=== PATIENT | male | born 1995 | race Caucasian/White ===

== ENCOUNTER 2018-03-14 14:58 | Emergency (ER) | payer MEDICAID, OTHER ==
[2018-03-14 15:29] VITALS: BMI 20.3
--- NOTE | 2018-03-14 15:37 | ED PDOC ---
Arrival/HPI - General Time Seen by Provider: 03/14/18 14:59 Historian: Patient Past Medical History - Tetanus Immunization Tetanus Immunization: Up to Date - Psychiatric Hx Depression: No Hx Emotional Abuse: No Hx Physical Abuse: No - Past Surgical History Past Surgical History: No Previous - Suicidal Assessment Feels Threatened In Home Enviroment: No Allergies/Home Meds Allergies/Adverse Reactions: Allergies No Known Allergies Allergy (Verified 09/16/12 19:59) Home Medications: Home Meds Medication Instructions Recorded Confirmed Esomeprazole Magnesium [Nexium] 40 mg PO 09/16/12 09/16/12 Mycophenolate Mofetil 500 mg PO 09/16/12 09/16/12 Prednisone 5 mg PO 09/16/12 09/16/12
[2018-03-14] MEDS ORDERED: Sodium Chloride 0.9% 1,000 ML IV STA (15:50)
--- NOTE | 2018-03-14 15:54 | ED PDOC ---
Arrival/HPI - General Chief Complaint: Wound Check Time Seen by Provider: 03/14/18 14:59 Historian: Patient - History of Present Illness Narrative History of Present Illness (Text): 03/14/18 15:51 23 y /o male, pmh including lupus/ICH from head injury 2 weeks ago which he is on keppra and topamax, nkda, here for the dressing change to his rt. hand s/p injured about 2 weeks ago. Pt. stated that he was on the [place] at [place] about 2 weeks ago, injured his head and passed out, seen at the local ER which he was hospitalized for 12 days and discharge home. Pt. is here to day at the ER for dressing change to his rt. hand but also complaining he has been having chills for the past 1 week, shivering in the ER with temp 100.2F in the ER, no abdominal pain or headache, no neck pain, no night sweat, no dizziness, no coughing, no change in vision, no other medical or psychological complaints. Past Medical History - Provider Review Nursing Documentation Reviewed: Yes - Tetanus Immunization Tetanus Immunization: Up to Date - Cardiac Hx Cardiac Disorders: No - Pulmonary Hx Respiratory Disorders: No - Neurological Hx Neurological Disorder: No - HEENT Hx HEENT Disorder: No - Renal Hx Renal Disorder: No - Endocrine/Metabolic Hx Endocrine Disorders: Yes Hx Systemic Lupus Erythematosus: Yes - Psychiatric Hx Depression: No Hx Emotional Abuse: No Hx Physical Abuse: No Hx Substance Use: No - Past Surgical History Past Surgical History: No Previous - Suicidal Assessment Feels Threatened In Home Enviroment: No Family/Social History - Physician Review Nursing Documentation Reviewed: Yes Family/Social History: Unknown Family HX Smoking Status: Never Smoked Hx Alcohol Use: No Hx Substance Use: No Allergies/Home Meds Allergies/Adverse Reactions: Allergies No Known Allergies Allergy (Verified 03/14/18 15:29) Home Medications: Home Meds Medication Instructions Recorded Confirmed Esomeprazole Magnesium [Nexium] 40 mg PO 09/16/12 09/16/12 Mycophenolate Mofetil 500 mg PO 09/16/12 09/16/12 Prednisone 5 mg PO 09/16/12 09/16/12 Review of Systems - Review of Systems Constitutional: Fatigue, Fevers, Other (+chills) Eyes: absent: Vision Changes ENT: absent: Hearing Changes Respiratory: absent: SOB, Cough Cardiovascular: absent: Chest Pain Gastrointestinal: absent: Abdominal Pain, Nausea, Vomiting Skin: Rash, Skin Lesions. absent: Pruritis, Laceration, Abscess, Ulcer, Cellulitis Neurological: absent: Headache, Dizziness Psychiatric: absent: Anxiety, Depression Physical Exam Vital Signs Reviewed: Yes Vital Signs Temp Pulse Resp BP Pulse Ox 03/14/18 17:33 98.5 F 69 18 118/67 99 03/14/18 16:01 99.8 F H 03/14/18 15:26 99.8 F H 82 17 115/67 98 Temperature: Febrile Blood Pressure: Normal Pulse: Regular Respiratory Rate: Normal Appearance: Positive for: Well-Appearing, Non-Toxic, Comfortable Pain Distress: None Mental Status: Positive for: Alert and Oriented X 3 - Systems Exam Head: Present: Atraumatic, Normocephalic, Ecchymosis (frontal forehead) Pupils: Present: PERRL Extroacular Muscles: Present: EOMI Conjunctiva: Present: Normal Ears: Present: Normal Canal, Other (Ears: bilateral TMs erythematous and intact , bilateral auditory canals non-erythematous, no mastoid tenderness. ) Mouth: Present: Moist Mucous Membranes Pharnyx: No: ERYTHEMA, EXUDATE, TONSILS ENLARGED Nose (External): Present: Atraumatic. No: Abrasion, Contusion Nose (Internal): Present: Normal Inspection, No Active Bleeding. No: Rhinorrhea , Septal Hematoma, Epistaxis Neck: Present: Normal Range of Motion Respiratory/Chest: Present: Clear to Auscultation, Good Air Exchange. No: Respiratory Distress, Accessory Muscle Use Cardiovascular: Present: Regular Rate and Rhythm, Normal S1, S2. No: Murmurs Abdomen: No: Tenderness, Distention, Peritoneal Signs Back: Present: Normal Inspection. No: CVA Tenderness, Midline Tenderness, Paraspinal Tenderness, Pain with Leg Raise, Decubitus Ulcer Upper Extremity: Present: Normal Inspection, Normal ROM, NORMAL PULSES, Neurovascularly Intact, Other (rt. hand dorsum region noted to have 2 superficial abrasion approx. [id number] each with no cellulitis or streaking). No : Cyanosis, Edema, Deformity Lower Extremity: Present: Normal Inspection, NORMAL PULSES, Normal ROM, Neurovascularly Intact, Capillary Refill < 2 s, Other (bilateral knee visible healing superficial scalp abrasion with no laceration or tenderness/swelling, no cellulitis or ulcers, ). No: Edema, CALF TENDERNESS, Drew's Sign, Tenderness, Swelling, Deformity Neurological: Present: GCS=15, CN II-XII Intact, Speech Normal, Motor Func Grossly Intact Skin: Present: Warm, Dry, Normal Color. No: Rashes Lymphatic: No: Cervical Adenopathy Psychiatric: Present: Alert, Oriented x 3, Normal Insight, Normal Concentration Medical Decision Making ED Course and Treatment: 03/14/18 15:55 Differential: sepsis vs. pneumonia vs. UTI -Labs/ua/vbg -cxr -IVF/tylenol -Abrasion wound clean with betadine, bacitracin and gauze dressing. -Observe and reassess 03/14/18 18:07 -Chest xray: No active disease. -Labs are non-significant -UA show +trace leuk, no urinary symptoms, will cover with augmentin -Fever resolved, neurologically intact, abrasion wound with no cellulitis or ulcers, wound healing well and dry, received tetanus on his previous ER visit and hospitalization, no new head or neck injury, no indication of repeat CT head as he has no new injury. -Case/labs/radiology results discussed in detail with Dr. Genao, suggest to discharge the patient home with antibiotic -Discharge home with tylenol, augmentin, bacitracin oinment, follow up with your own pmd and neurologist within 2 days, return to the Er for any new or worsening signs or symptoms. - Lab Interpretations Lab Results: 03/14/18 16:40 03/14/18 16:40 Lab Results 03/14/18 18:02: Urine Color Yellow, Urine Appearance Clear, Urine pH 7.0, Ur Specific [place] 1.010, Urine Protein 100 H, Urine Glucose (UA) Negative, Urine Ketones Negative, Urine Blood Trace-intact H, Urine Nitrate Negative, Urine Bilirubin Negative, Urine Urobilinogen 4.0 H, Ur Leukocyte Esterase Small H, Urine RBC 1 - 3, Urine WBC 1 - 3, Ur Epithelial Cells None, Urine Bacteria Trace 03/14/18 17:29: pO2 248 H, VBG pH 7.37, VBG pCO2 36.0 L, VBG HCO3 20.8 L, VBG Total CO2 21.9 L, VBG O2 Sat (Calc) 99.8 H, VBG Base Excess -3.9 L, VBG Potassium 3.7, Sodium 137.0, Chloride 109.0 H, Glucose 85, Lactate 0.7, FiO2 21.0, Venous Blood Potassium 3.7 03/14/18 16:40: WBC 6.4, RBC 4.68, Hgb 12.0 L, Hct 35.6 L, MCV 76.1 L, MCH 25.6 , MCHC 33.7, RDW 13.9, Plt Count 274, MPV 10.6, Gran % 75.2 H, Lymph % (Auto) 14.6 L, [place] % (Auto) 9.4 H, Eos % (Auto) 0.5 L, Baso % (Auto) 0.3, Gran # 4.79 , Lymph # (Auto) 0.9 L, [place] # (Auto) 0.6, Eos # (Auto) 0.0, Baso # (Auto) 0.02 03/14/18 16:40: Sodium 137, Chloride 106, Potassium 3.9, Carbon Dioxide 20 L, Anion Gap 15, BUN 13, Creatinine 0.7 L, Est GFR ( Amer) > 60, Est GFR ( Non-Af Amer) > 60, Random Glucose 91, Calcium 9.0, Total Bilirubin 0.7, AST 23, ALT 23, Alkaline Phosphatase 72, Total Protein 7.9, Albumin 3.6, Globulin 4.3, Albumin/Globulin Ratio 0.8 L 03/14/18 16:40: pO2 263 H, VBG pH 7.14 L*, VBG pCO2 55.0, VBG HCO3 18.7 L, VBG Total CO2 20.4 L, VBG O2 Sat (Calc) 100.5 H, VBG Base Excess -10.7 L, VBG Potassium > 20.0 H*, Sodium 127.0 L, Chloride 104.0, Glucose 82, Lactate 1.3, FiO2 21.0, Venous Blood Potassium > 20.0 H* I have reviewed the lab results: Yes - RAD Interpretation Radiology Orders: 03/14/18 15:50 CHEST PORTABLE [RAD] Stat Date of service: 03/14/2018 HISTORY: fever COMPARISON: GoNo prior. FINDINGS: LUNGS: No active pulmonary disease. PLEURA: No significant pleural effusion identified, no pneumothorax apparent. CARDIOVASCULAR: Normal. OSSEOUS STRUCTURES: No significant abnormalities. VISUALIZED UPPER ABDOMEN: Normal. OTHER FINDINGS: None. IMPRESSION: No active disease. Junior Data Analyst: Radiologist - Medication Orders Current Medication Orders: Discontinued Medications Acetaminophen (Tylenol 325mg Tab) 650 mg PO STAT STA Stop: 03/14/18 15:51 Last Admin: 03/14/18 16:01 Dose: 650 mg MAR Pain/Vitals Document 03/14/18 16:01 LA (Rec: 03/14/18 16:03 LA [id number]) Pain Reassessment Is This A Pain ReAssessment? No Sleep Is patient sleeping during reassessment? No Presence of Pain Presence of Pain Yes Pain Scale Used Pain Scale Used Numeric Location Intensity 8 Scale Used Numeric Vitals Temperature (97.6 F-99.6 F) 99.8 F Temperature Source Oral Re-Assess: MAR Pain/Vitals Document 03/14/18 17:01 LA (Rec: 03/14/18 18:17 LA [id number]) Pain Reassessment Is This A Pain ReAssessment? Yes Sleep Is patient sleeping during reassessment? Yes Sodium Chloride (Sodium Chloride 0.9%) 1,000 mls @ 999 mls/hr IV .Q1H1M STA Stop: 03/14/18 16:50 Last Admin: 03/14/18 16:03 Dose: 999 mls/hr eMAR Start Stop Document 03/14/18 16:03 LA (Rec: 03/14/18 16:03 LA [id number]) Intravenous Solution Start Date 03/14/18 Start Time 16:03 End Date 03/14/18 End time 17:04 Total Infusion Time 61 Ceftriaxone Sodium (Rocephin 1 Gram Ivpb) 1 gm in 100 mls @ 200 mls/hr IVPB STAT STA PRN Reason: Protocol Stop: 03/14/18 18:03 Last Admin: 03/14/18 18:17 Dose: 200 mls/hr eMAR Start Stop Document 03/14/18 18:17 LA (Rec: 03/14/18 18:17 LA [id number]) Intravenous Solution Start Date 03/14/18 Start Time 18:17 End Date 03/14/18 End time 18:47 Total Infusion Time 30 - PA / MATERIALS BUYER / Resident Statement MD/DO has reviewed & agrees with the documentation as recorded. Disposition/Present on Arrival - Present on Arrival Any Indicators Present on Arrival: No History of DVT/PE: No History of Uncontrolled Diabetes: No Urinary Catheter: No History of Decub. Ulcer: No History Surgical Site Infection Following: None - Disposition Have Diagnosis and Disposition been Completed?: Yes Diagnosis: Otitis media, Visit for wound check, Fever Disposition: HOME/ ROUTINE Disposition Time: 18:10 Patient Plan: Discharge Patient Problems: Current Active Problems Problem Status Onset Otitis media Acute Visit for wound check Acute Fever Acute Condition: IMPROVED Additional Instructions: -Discharge home with tylenol, augmentin, bacitracin oinment, follow up with your own pmd and neurologist within 2 days, return to the Er for any new or worsening signs or symptoms. Prescriptions: Acetaminophen [Pain Reliever] 500 mg PO QID PRN #20 tablet PRN Reason: Other Amoxicillin/Clavulanate [Augmentin 875 MG-125 MG] 1 tab PO BID #20 tab Bacitracin Ointment [Bacitracin] 1 appful TOP BID #15 g Referrals: PCP,SETH [Primary Care Provider] - Follow up with primary Awa Drummond MD [Staff Provider] - Follow up with primary Fletcher Guillaume DO [Staff Provider] - Follow up with primary [facility] [Outside] - Follow up with primary Forms: WORK NOTE
--- NOTE | 2018-03-14 16:24 | RAD ---
Date of service: 03/14/2018 HISTORY: fever COMPARISON: GoNo prior. FINDINGS: LUNGS: No active pulmonary disease. PLEURA: No significant pleural effusion identified, no pneumothorax apparent. CARDIOVASCULAR: Normal. OSSEOUS STRUCTURES: No significant abnormalities. VISUALIZED UPPER ABDOMEN: Normal. OTHER FINDINGS: None. IMPRESSION: No active disease.
[2018-03-14 17:08] LABS: VENOUS BLOOD GAS BASE EXCESS -10.7 mmol/L (0.0-2.0); VENOUS BLOOD GAS PO2 263 mm/Hg (30-55)
[2018-03-14 17:10] LABS: BASO # 0.02 K/mm3 (0.0-2.0); BASO % 0.3 % (0.0-3.0); EOS % 0.5 % (1.5-5.0); GRAN # 4.79 (1.4-6.5); GRAN % 75.2 % (50.0-68.0); LYMPH # 0.9 (1.2-3.4); LYMPH % 14.6 % (22.0-35.0); MEAN CELL VOLUME 76.1 fl (80.0-105.0); MEAN CORPUSCULAR HEMOGLOBIN 25.6 pg (25.0-35.0); MEAN CORPUSCULAR HGB CONC 33.7 g/dl (31.0-37.0); MEAN PLATELET VOLUME 10.6 fl (7.0-11.0); MONO # 0.6 (0.1-0.6); MONO % 9.4 % (1.0-6.0); RBC 4.68 10^6/uL (3.5-6.1); RED CELL DISTRIBUTION WIDTH 13.9 % (11.5-14.5); WHITE BLOOD COUNT 6.4 10^3/ul (4.5-11.0)
[2018-03-14 17:16] LABS: VENOUS BLOOD PH 7.14 (7.32-7.43)
[2018-03-14 17:18] LABS: ALB/GLOB RATIO 0.8 (1.1-1.8); ALBUMIN 3.6 g/dL (3.0-4.8); ALT/SGPT 23 U/L (7-56); AST/SGOT 23 U/L (17-59); BLOOD UREA NITROGEN 13 mg/dL (7-21); GFR AFRICAN-AMERICAN > 60; GFR NON-AFRICAN AMERICAN > 60
[2018-03-14 17:34] VITALS: RESP 18
[2018-03-14] MEDS ORDERED: cefTRIAXone 1 gm 1 GM/100 ML BAG IVPB STA (17:34)
[2018-03-14 17:42] LABS: VENOUS BLOOD GAS BASE EXCESS -3.9 mmol/L (0.0-2.0); VENOUS BLOOD GAS PO2 248 mm/Hg (30-55); VENOUS BLOOD PH 7.37 (7.32-7.43)
[2018-03-14 18:13] LABS: URINE APPEARANCE CLEAR (CLEAR); URINE BILIRUBIN NEGATIVE (NEGATIVE); URINE BLOOD TRACE-INTACT (NEGATIVE); URINE COLOR YELLOW (YELLOW); URINE GLUCOSE (UA) NEGATIVE (NEGATIVE); URINE LEUKOCYTE ESTERASE SMALL Leu/uL (NEGATIVE); URINE PROTEIN 100 mg/dL (<30 mg/dL)
[2018-03-14 18:21] LABS: URINE BACTERIA TRACE (NEG)
[2018-03-14 19:06] VITALS: BP 112/55; PULSE 75; TEMP 97.8; O2SAT 98
== END 2018-03-14 19:00 | disposition home or self-care (01) ==
LOC: ED 14:58
DX: Z48.00 Encounter for change or removal of nonsurgical wound dressing (principal); H66.93 Otitis media, unspecified, bilateral; R50.9 Fever, unspecified
CPT/HCPCS: 71045; 80053; 81001; 82803; 85025; 87086; 96361; 96365; 99284; J0696; J7030